=== PATIENT | female | born 1955 ===

== ENCOUNTER 2024-12-10 09:00 | Inpatient (IN) | payer OTHER ==
[~2024-12-10] VITALS: Ht 154.9 cm; Wt 65.8 kg
[2024-12-10 09:31] VITALS: BP 147/84
[2024-12-10 09:31] LABS: PH,URINE 6.5 (5.0-8.0); URINE APPEARANCE Clear; URINE BILIRRUBIN Negative (NEGATIVE); URINE BLOOD Trace; URINE COLOR Yellow; URINE GLUCOSE Negative (NEGATIVE); URINE KETONE Negative (NEGATIVE); URINE LEUKOCYTE Moderate; URINE NITRATE Negative; URINE PROTEIN Negative (NEGATIVE); URINE UROBILINOGEN 0.2 E.U./dl
[2024-12-10] MEDS ORDERED: IRBESARTAN-HCT1 EAC1 PO (09:34)
[2024-12-10] MEDS ORDERED: CARVEDILOL ER40 MG (09:35)
[2024-12-10] MEDS ORDERED: ALDACTONE25 MG PO (09:35)
[2024-12-10 09:36] LABS: URINE BACTERIA 154.1 uL (0.0-1933); URINE EPITHELIAL CELLS 2.6 uL (0.0-38.8); URINE RBC 6.1 uL (0.0-20.8); URINE WBC 17.8 uL (0.0-23.2)
[2024-12-10] MEDS ORDERED: AMLODIPINE-OLM1 EAC2 (09:36)
[2024-12-10] MEDS ORDERED: GLIPIZIDE XL10 MG PO (09:36)
[2024-12-10] MEDS ORDERED: LIPITOR20 MG (09:36)
[2024-12-10] MEDS ORDERED: ANASTROZOLE1 MG PO (09:37)
[2024-12-10] MEDS ORDERED: CALTRATE 600 +1 EAC1 PO (09:37)
[2024-12-10] MEDS ORDERED: ALENDRONATE SOD70 MG PO (09:37)
[2024-12-10 09:54] LABS: INR 1.05; PARTIAL THROMBOPLASTIN TIME 27.8 SECONDS (22.0-34.0); PROTHROMBIN TIME 11.4 SECONDS (9.0-11.5)
[2024-12-10 09:59] LABS: HEMATOCRIT 43.1 % (36.0-45.00); HEMOGLOBIN 14.8 g/dL (12.0-15.00); MEAN CELL VOLUME 90.6 fL (80.00-100.00); MEAN CORPUSCULAR HEMOGLOBIN 31.2 pg (27.00-32.0); MEAN CORPUSCULAR HGB CONC 34.4 g/dl (32.0-36.0); PLATELET COUNT 181 K/uL (150-450); RED BLOOD COUNT 4.76 M/uL (4.00-6.00); RED CELL DISTRIBUTION WIDTH 14.1 % (11.5-14.5)
[2024-12-10 10:50] LABS: ALBUMIN 3.9 gm/dL (3.4-5.0); BILIRUBIN TOTAL 0.7 mg/dL (0.3-1.2); CALCIUM 9.2 mg/dL (8.5-10.1); CREATININE SERUM 0.9 mg/dL (0.55-1.02); GFR 61.9; POTASSIUM 3.57 mEq/L (3.5-5.1); TOTAL PROTEIN 7.9 gm/dL (6.4-8.2)
[2024-12-17] MEDS ORDERED: CLINDAMYCIN PHOSPHATE 150 MG/ML (900mg) ONE (14:14)
[2024-12-17] MEDS ORDERED: POVIDONE-IODINE 118 ML BOTT TOP ONE (14:16)
[2024-12-17] MEDS ORDERED: SURGIFLO APPLICATOR 1 EACH APPL TOP ONE (17:12)
[2024-12-17] MEDS ORDERED: HEMOSTATIC MATRIX 1 KIT KIT TOP ONE ×3 (17:12→17:30)
[2024-12-17] MEDS ORDERED: RINGERS SOLUTION,LACTATED 1,000 ML IV SCH (18:00)
[2024-12-17] MEDS ORDERED: ONDANSETRON HCL 2 MG/ML VIAL IV PRN ×2 (18:00→23:00)
[2024-12-17] MEDS ORDERED: MORPHINE SULFATE 4 MG/ML VIAL IV PRN ×2 (18:00→23:00)
[2024-12-17] MEDS ORDERED: MORPHINE SULFATE 4 MG/ML VIAL IV ONE (18:50)
[2024-12-17 22:29] VITALS: BP 120/80
[2024-12-17] MEDS ORDERED: KETOROLAC TROMETHAMINE 30 MG VIAL IV PRN (23:00)
[2024-12-18 01:31] VITALS: BP 121/72
[2024-12-18] MEDS ORDERED: IBUprofen 600 MG TABLET PO PRN ×2 (07:00→08:00)
[2024-12-18] MEDS ORDERED: OxyCODONE HCL/APAP UD (PERCOCET) PO PRN ×2 (07:00→09:00)
[2024-12-18 08:37] VITALS: BP 136/68
[2024-12-18 13:34] VITALS: BP 140/67
[2024-12-18 15:53] VITALS: BP 121/76
== END 2024-12-18 18:06 | disposition home or self-care (01) | DRG 743 ==
LOC: ADM 09:00 → CIR.AMB 12-17 07:20 → OB/GYN 12-17 07:26 → CIR.AMB 12-17 09:00 → EDBD 12-17 09:00 → EDSTATUS 12-17 09:00 → CIR.AMB 12-17 10:00 → OB/GYN 12-17 21:18
PROVIDERS: ADMIT Student in an Organized Health Care Education/Training Program; ATTEND Student in an Organized Health Care Education/Training Program
PROC: 0UT20ZZ Resection of Bilateral Ovaries, Open Approach (ICD-10-PCS; 2024-12-17)
PROC: 0UT70ZZ Resection of Bilateral Fallopian Tubes, Open Approach (ICD-10-PCS; principal; 2024-12-17 11:50)
DX: D27.1 Benign neoplasm of left ovary (principal); R19.00 Intra-abdominal and pelvic swelling, mass and lump, unspecified site; Z90.722 Acquired absence of ovaries, bilateral; Z98.890 Other specified postprocedural states